=== PATIENT | male | born 1960 | race Two or more races ===

== ENCOUNTER 2016-10-27 13:16 | Inpatient (IN) | payer OTHER ==
[~2016-10-27] VITALS: Ht 167.6 cm; Wt 180.5 kg
--- NOTE | ~2016-10-27 | CON ---
[facility] A[facility] 56 Y [address] ROOM: [place] [address] LOCATION: GPCU ADMIT DATE: 10/27/2016 Consultation DISCHARGE DATE: FAMILY PHYSICIAN: JEWELL LAWRENCE MD ATTENDING PHYSICIAN: MAGGIE ROCKWELL DATE OF CONSULTATION: 10/30/2016 REFERRING PHYSICIAN: Presley Dickerson MD TIME SEEN: 3:20 p.m. HISTORY OF PRESENT ILLNESS: Mr. Waterman is an unfortunate 56-year-old, diabetic male, massively obese, came in the hospital on October 27 for possible sepsis, long history of fractures, and osteomyelitis about his right tibia. No evidence of recurrence. With his diabetes, he does have neuropathic leg pain, right side greater than left. Denies any drainage from the wounds. No new pains about the knee or the ankle. Denies any trauma. ALLERGIES: MORPHINE AND NONSTEROIDAL ANTI-INFLAMMATORIES. MEDICATIONS: See list. PAST MEDICAL HISTORY: Diabetes, osteomyelitis, pathologic fractures of the right tibia, osteoarthritis of the right knee, diabetes, peripheral neuropathy. SOCIAL HISTORY: Does not smoke or drink. FAMILY MEDICAL HISTORY: Unremarkable. REVIEW OF SYSTEMS: As above. PERSONAL AND SOCIAL HISTORY: Lives in [place]. Uses crutches to avoid falls. PHYSICAL EXAMINATION: GENERAL: Obese male, speaks limited South Sudanese. Hears and sees. NECK: Nontender. PATIENT'S NAME: COLUMBA [facility] AGE: 56 Y [address] ROOM: [place] [address] LOCATION: GPCU ADMIT DATE: 10/27/2016 Consultation DISCHARGE DATE: FAMILY PHYSICIAN: JEWELL LAWRENCE MD ATTENDING PHYSICIAN: MAGGIE ROCKWELL BACK: Nontender. HEART: Pulse rate is regular. LUNGS: Able to take in a deep breath. ABDOMEN: Massively obese, nontender. EXTREMITIES: The right leg is examined. The right knee is neutral alignment, not hot or red. No effusion. Tenderness over the medial joint line from arthritis, some crepitus on motion. The right ankle generally tender to light touch throughout the right leg, but not localized to the ankle. No effusion. Not hot or red. The healed wounds over the fracture sites are all healed. There is no erythema, warmth, drainage, or fluctuance. VASCULAR: Distal pulses are palpable. DIAGNOSTIC DATA: X-rays were reviewed consistent with healed right tibial fracture. Nails in place. It has been dynamized and only distal screws present. CT scan of the right tibia shows no destruction of acute osteomyelitis. Shows healed fractures and a maddie and distal locking screws in place. CT scan of the chest: No pulmonary emboli. Ultrasound of the right leg: No DVTs. ASSESSMENT AND PLAN: Healed right tibia fracture. Certainly has a history of osteomyelitis. No acute osteomyelitis at this time. Certainly at risk for recurrence of osteomyelitis in the future. Could be a candidate for removal of intramedullary nail at some time in the future. Will follow up with Dr. Dickerson on November 26 at 4 o'clock p.m. and continue using his crutches to avoid falls. PRESLEY DICKERSON MD DPM/adrienne /[id number] d: 10/30/16 2333 t: 11/07/16 1004, CONSULTATION REPORT
--- NOTE | ~2016-10-27 | DS ---
PATIENT'S NAME: ELOISA WATERMAN [facility] AGE: 56 Y [address] ROOM: [id number] [place], [place] [address] LOCATION: GPCU ADMIT DATE: 10/27/2016 Discharge Summary DISCHARGE DATE: 10/31/2016 FAMILY PHYSICIAN: Gumaro Pizarro MD ATTENDING PHYSICIAN: Abigail Cleveland FINAL DIAGNOSES: 1. Lactic acidosis secondary to metformin. 2. Diabetes mellitus type 2, poorly-controlled. 3. Essential hypertension. 4. Right leg pain. 5. Musculoskeletal back pain. 6. Morbid obesity. Please see the history and physical dictated by Dr. Cleveland for details. In short, the patient was transferred from [place] after presenting with pain in his leg. He was noted to have an elevated lactic acid level and there was concern that he did in fact have an infection in his leg. LABORATORY DATA: On admission, lactate 4.5, most prior to discharge 1.2. Sodium on admission was 138, discharge 139; potassium 4.2, and 4 most prior to discharge; CO2 on admission was 26, most prior to discharge 27; BUN on admission was 18, discharge 19; creatinine on admission was 1.2, discharge 1. Liver enzymes on admission were normal. Total cholesterol 133, triglycerides 185, HDL 34, LDL 62. His hemoglobin A1c was 9.7. C-reactive protein was 1.07. White blood cell count on admission was 12.2 with a normal differential, hemoglobin was 13.7, hematocrit 42.8, and platelet count 278. His sedimentation rate was 20. Procalcitonin on admission was less than 0.05. Cardiovascular data: Venous Dopplers done on admission were negative for DVT. Cardiac stress test, read by Dr. Campos, there is no evidence of inducible reversible defects. Radiology studies: Right leg x-ray on admission done in the emergency room showed evidence of hardware in place. There were no fractures noted. Spiral cut PE protocol CT scan done on admission was negative for pulmonary embolism. He had a stable right adrenal mass. Distal CT scan of his right leg was no evidence of osteomyelitis or soft tissue abscess. HOSPITAL COURSE: The patient was admitted to PCU. He was given one dose of antibiotics. Cultures were obtained. Dr. Presley Campos was asked to see the patient. He was given IV hydration and he was put on heparin for DVT prophylaxis. Dopplers of the legs were done and were negative. He was started on gabapentin for pain. His blood sugars were quite high and his hemoglobin A1c returned elevated. Because of the elevated lactic acid, the metformin was PATIENT'S NAME: ELOISA WATERMAN [facility] AGE: 56 Y [address] ROOM: [place] [address] LOCATION: GPCU ADMIT DATE: 10/27/2016 Discharge Summary DISCHARGE DATE: 10/31/2016 FAMILY PHYSICIAN: Gumaro Pizarro MD ATTENDING PHYSICIAN: Abigail Cleveland on hold. The patient was started on Levemir and aspirin. He developed a substernal chest pain and was given sublingual nitroglycerin. Cardiac enzymes were obtained which were negative. A decision was made to set him up for a stress test which was done on the . It was also felt that he needed to have a CT scan of the leg to rule out osteomyelitis. The Cardiolite stress test returned without any abnormalities. The CT scan returned without any evidence of infection. Diabetic educators did work with him in terms of trying to get him converted. It was felt that we are going to have to start him on insulin, so they did work with carbohydrate counting for him. As his metformin was held, his lactic acid level returned to the normal range. Dr. Presley Campos did see him in consultation for pain in the leg. He did not feel that there was any surgery or any evidence of infection or that any intervention needed to be done at this time and further followup to be done at this time. He did want the patient to follow up with him as an outpatient. We did work to get him samples of meters and strips and insulin from the diabetic center as well as from his primary care office with Dr. Pizarro. It was felt that he had reached maximum hospital benefit and was stable for discharge on the . DISCHARGE MEDICATIONS: 1. Aspirin 325 mg daily. 2. Neurontin 200 mg 3 times a day. 3. NovoLog insulin 2 units per 15 grams of carbohydrates consumed. 4. Lantus 18 units at bedtime. 5. Lopressor 25 mg twice a day which was started for hypertension. FOLLOWUP: The patient is scheduled to follow up with Dr. Pizarro, his primary care provider on November 06 at [address] Presley Campos on November 26 at 4 p.m. PROGNOSIS: Overall prognosis at discharge is . TIKA REDMOND MD LAW/modl /[id number] d: 11/01/16 1303 t: 11/01/16 1830, DISCHARGE SUMMARY
--- NOTE | ~2016-10-27 | ER ---
[facility] AGE: 56 Y [address] ROOM: [place] [id number] LOCATION: GPCU ADMIT DATE: 10/27/2016 ER/Outpatient Report DISCHARGE DATE: FAMILY PHYSICIAN: JEWELL LAWRENCE MD ATTENDING PHYSICIAN: MAGGIE CLEVELAND TIME OF ARRIVAL: 1320 TIME OF EXAM: 1320 CHIEF COMPLAINT: Possible leg infection. HISTORY OF PRESENT ILLNESS: The patient states through the use of the MARTTI that he has been having right lower leg pain for the past month, it hurts all the time. He was last seen by his primary provider in August for this. He was concerned today because his sugars are elevated at home, and the last time he had infection of his right lower leg, his blood sugars went up. He says he is taking his diabetes medicine, but his blood sugar continues to be high. He has had some swelling of his legs. States he has had fever and chills at home, but has not noticed any redness or any open sores. Reports the pain starts around his ankle area and goes all the way up to his knee. He does have some numbness of his toes. He does have a history of peripheral neuropathy. ALLERGIES: HE HAS NO KNOWN ALLERGIES. CURRENT MEDICATIONS: He is on metformin twice a day. PAST MEDICAL HISTORY: Non-insulin dependent diabetes, COPD, elevated cholesterol, iron deficiency anemia, gastric reflux, sleep apnea, obesity, peripheral neuropathy, and osteomyelitis with debridement of the right lower leg. PAST SURGERIES: He had right lower leg fracture with maddie placement in 2003, and he has had the hardware removed of the fibula due to osteomyelitis. He has had right knee surgery. SOCIAL HISTORY: He denies use of tobacco, drugs, or alcohol. PATIENT'S NAME: COLUMBA [facility] AGE: 56 Y [address] ROOM: [address] [address] LOCATION: GPCU ADMIT DATE: 10/27/2016 ER/Outpatient Report DISCHARGE DATE: FAMILY PHYSICIAN: JEWELL LAWRENCE MD ATTENDING PHYSICIAN: MAGGIE CLEVELAND A REVIEW OF SYSTEMS: Negative other than those mentioned in the HPI. PHYSICAL EXAMINATION: VITAL SIGNS: He weighed 183.4 kg. Blood pressure is 173/85, pulse of 92, respirations 18, temperature of 98.1, O2 saturations 96% on room air. GENERAL: He is awake, alert, and oriented x4. SKIN: [place], warm, and dry. RESPIRATIONS: Even and nonlabored. Lung sounds are clear throughout. HEART: Regular rate and rhythm. ABDOMEN: Round and nondistended. Bowel sounds are present. He has positive peripheral pulses. No redness of his right lower leg is noted. Nonpitting edema noted. LABORATORY DATA AND X-RAYS: Lab work was drawn. CBC comes back with a white count of 12.2, hemoglobin 13.7, hematocrit 42.8. Chem panel: Sodium 138, potassium 4.2, chloride 108, glucose 218, BUN 18, creatinine 1.2. GFR greater than 60. Lactate came back at 4.5. Doppler study of right leg completed and was negative. EMERGENCY DEPARTMENT COURSE: The patient was reviewed with Dr. Merino. He does meet criteria for sepsis with the tachycardia and elevated white count. We will start him on vancomycin and Zosyn. Procalcitonin came back normal. Dr. Cleveland was contacted. Report given. IMPRESSION: 1. Sepsis. 2. Possible osteomyelitis. PLAN: The patient will be placed in PCU under the care of the hospitalist. The patient is aware of the plan. CARMELITA JUAREZ APRN FOR DO ANIVAL GUSTAFSON/adrienne /[id number] d: 10/27/162026 t: 11/05/162042, OUTPATIENT REPORT
--- NOTE | ~2016-10-27 | ESTC ---
Cardiac Perfusion Imaging Demographics Patient Name COLUMBA Cevallos Gender Male Patient Number [id number] Race Other Visit Number [id number] Ethnicity or Corporate ID Room Number G6324 Accession Number [id number] Height 66 inches Date of 1960 Weight 404.6 pounds Interpreting Beth Thomas MD Date of study 10/29/2016 Physician Supervising /ANGELA HUTCHISON Technologist Carlos Grande APRN Ordering Physician Mayi Roger V Stress MD automation control technician Stress ECG Reading Kj Rivers Nurse Geovany Pittman Physician PREET Medications Reviewed with Patient prior to Procedure. Procedure Procedure Type: Nuclear Stress Test:Pharmacological, Lexiscan, Cardiolite Stress Test Procedure Start time: 10/29/2016 08:30 Indications: Septic shock. Risk Factors The patient risk factors include:obesity, physical activity, hypercholesterolemia, hypertension, insulin treated diabetes mellitus, chronic lung disease and dyslipidemia. Conclusions Summary Cardiolite SPECT images demonstrate homogenous uptake of radioactive tracer. No evidence of inducible reversible defect and no evidence of underlying fixed defect. Normal TID ratio Gated images demonstrate normal left ventricular systolic function without inducible wall motion abnormalities. LVEF is 78% Stress Protocols Resting ECG RSR without ST or T wave changes. Resting HR:38 bpm Resting BP:138/85 mmHg Pre-stress physical exam: Pharmacologic stress testing was performed due to inability to walk. Stress Protocol:Pharmacologic Peak HR:111 bpm HR response: Appropriate Peak BP:149/80 mmHg BP response: Appropriate Predicted HR: 163 bpm HR/BP product:10641 % of predicted HR: 68 Reason for termination:Infusion complete ECG Findings No ECG changes suggestive of ischemia. Arrhythmias No rhythm abnormality. Symptoms Nausea Stress Interpretation Appropriate hemodynamic response to Lexiscan. No significant ST-T wave changes with Lexiscan. ECG portion is negative for ischemia by diagnostic criteria. Stress supervision and interpretation provided by Milli Underwood APRN . Imaging Results Applied corrections - Motion correction applied Summed scores - Summed stress score: 16 - Summed rest score: 21 - Summed difference score: -5 Stress ejection Ejection fraction:78 % EDV :115 ml ESV :25 ml Stroke volume :90 ml LV mass :138 gr Imaging Protocols Rest Stress Isotope:Tc99m Sestamibi IV Isotope: Tc99m Sestamibi IV Isotope dose:16 mCi Isotope dose:51 mCi Date:10/29/2016 07:03 Date:10/29/2016 08:50 Technique: SPECT Technique: Gated Supine SPECT Supine IV remains in place after procedure. Procedure Medications - Regadenoson (Lexiscan) 0.4 mg IV over 10-15 sec. I.V. 0.4 mg. Medications administered per verbal order and read back to physician prior to administration. Medical History Admission Data Admission date: 10/27/2016 Admission Time: 17:43 Hospital Status: Inpatient. Signatures dtt: William Campos (cardio) dtd: 10/29/16 3127 Physician Self Edit
--- NOTE | ~2016-10-27 | ENPV ---
Vascular Lower Extremities DVT Study Procedure Demographics Patient Name ELIOSA WATERMAN Date of Study 10/27/2016 Patient Number [id number] Gender Male Date of 1960 Age 56 Visit Number [id number] Height Accession Number [id number] Weight Room Number G6324 BSA BMI Referring Juarez Naik MD Interpreting Efrem Jamison MD Physician Jewel Physician Physician Ordering Physician Jewel Real Estate Developer Sewer Connector Isidro Boateng, MIRIAMT Conclusions Summary Technically difficult and limited exam secondary to the patient's pain. No evidence of deep vein thrombosis in the right lower extremity veins visualized. The femoral vein was not compressed and is patent by color filling. The right proximal segment of the posterior tibial veins and the peroneal veins were not visualized, cannot rule out deep vein thrombosis in these veins. Procedure Type of Study: Veins:Lower Extremities DVT Study, Lower Extremity Right. Indications for Study:Unilateral pain and edema. Additional Indications:Right lower extremity pain/edema Appropriate Use Criteria:9 Patient Status:STAT. Study Location:ER. Technical Quality:Limited visualization due to sub-optimal image. Velocities are measured in cm/s ; Diameters are measured in cm Right Lower Extremities DVT Study Measurements Right 2D and Doppler Measurements + + + + +------+------+ + !Location !Visualized!Compressibility!Thrombosis!Signal!Reflux!Reflux ! ! ! ! ! ! ! !(sec) ! + + + + +------+------+ + !GSV Thigh !Yes !Yes !None !Phasic!No ! ! + + + + +------+------+ + !Common !Yes !Yes !None !Phasic!No ! ! !Femoral ! ! ! ! ! ! ! + + + + +------+------+ + !Prox !Yes !No !None !Phasic!No ! ! !Femoral ! ! ! ! ! ! ! + + + + +------+------+ + !Mid Femoral!Yes !Yes !None !Phasic!No ! ! + + + + +------+------+ + !Dist !Yes !No !None !Phasic!No ! ! !Femoral ! ! ! ! ! ! ! + + + + +------+------+ + !Popliteal !Yes !Yes !None !Phasic!No ! ! + + + + +------+------+ + !Gastroc !Yes !Yes !None !Phasic!No ! ! + + + + +------+------+ + !PTV !Yes !Yes !None !Phasic!No ! ! + + + + +------+------+ + !Peroneal !No ! ! ! ! ! ! + + + + +------+------+ + Left Lower Extremities DVT Study Measurements Left 2D and Doppler Measurements + + + + +------+------+ + !Location !Visualized!Compressibility!Thrombosis!Signal!Reflux!Reflux ! ! ! ! ! ! ! !(sec) ! + + + + +------+------+ + !Common !Yes !Yes !None !Phasic!No ! ! !Femoral ! ! ! ! ! ! ! + + + + +------+------+ + Signature dtt: LANE CHANEL dtkarla: 10/27/16 1412 Physician Self Edit
--- NOTE | ~2016-10-27 | HP ---
[facility] AGE: 56 Y [address] ROOM: [place] [address] LOCATION: GPCU ADMIT DATE: 10/27/2016 History & Physical DISCHARGE DATE: FAMILY PHYSICIAN: JEWELL LAWRENCE MD ATTENDING PHYSICIAN: MAGGIE ROCKWELL DATE OF SERVICE: CHIEF COMPLAINT: Bilateral leg pain right greater than left. HISTORY OF PRESENT ILLNESS: A 56-year-old Macedonian speaking gentleman with a past medical history of morbid obesity, recurrent right tibial osteomyelitis, insulin-dependent diabetes mellitus, presented to the emergency department from [place], stating that he had been feeling pain in his both legs, right greater than left, which have been going on for couple of weeks now associated with some fever and chills, which he stated have been going on for over a month now. On further inquiry, he denied any swelling in the legs or any redness. He denied any shortness of breath along with any chest pain, any headache, any dizziness, any trouble swallowing, any abdominal pain, any burning on urination, any constipation or diarrhea. REVIEW OF SYSTEMS: All other systems reviewed and were negative except what is mentioned in the HPI. ALLERGIES: THE PATIENT IS ALLERGIC TO MORPHINE AND IBUPROFEN. PAST MEDICAL HISTORY: 1. Morbid obesity. 2. Obstructive sleep apnea. 3. Obesity hypoventilation syndrome. 4. Insulin-dependent diabetes mellitus. 5. Peripheral neuropathy. 6. Right adrenal mass without any biopsy due to morbid obesity. 7. Dyslipidemia. 8. GERD. 9. Iron deficiency anemia. 10. Chronic pain from multiple surgeries, on chronic narcotic use. 11. Essential hypertension. 12. Right eye tear. 13. History of broken teeth. 14. History of COPD. PATIENT'S NAME: WATERMAN [facility] AGE: 56 Y [address] ROOM: [place] [id number] LOCATION: GPCU ADMIT DATE: 10/27/2016 History & Physical DISCHARGE DATE: FAMILY PHYSICIAN: JEWELL LAWRENCE MD ATTENDING PHYSICIAN: MAGGIE ROCKWELL PAST SURGICAL HISTORY: 1. Right fibular osteotomy and hardware removal of the right tibial shaft. 2. Right knee surgery. 3. Growth removal on the left eye. 4. Debridement of the osteomyelitis of the right tibia. 5. Closed reduction of the right tibial fracture. 6. Biopsy of the right tibia with cast application intermittently. 7. Nail fixation with old right tibial fracture. 8. Right leg hardware removal. FAMILY HISTORY: The patient have 5 brothers and 5 sisters. No history of coronary artery disease. MEDICATIONS: Medications are being reviewed. SOCIAL HISTORY: Never a smoker. No alcohol or drug abuse. Lives with sister in [place]. PHYSICAL EXAMINATION: VITAL SIGNS: Blood pressure 173/68, heart rate of 92, afebrile, respiratory rate of 20. GENERAL: In no acute distress. Alert and oriented x3. HEENT: Head: Atraumatic, normocephalic. Eyes: Nonicteric. No pallor. Oropharynx; moist mucous membranes. CARDIOVASCULAR: S1, S2. No murmurs, gallops, or rubs. LUNGS: Clear to auscultation bilaterally. ABDOMEN. Very obese, nontender, nondistended. Bowel sounds are present. EXTREMITIES: Did not reveal any edema, but tenderness could be elicited on tibial palpation on the right side. PSYCH: Normal affect, mood, and speech. NEUROLOGIC: Cranial nerves 2 through 12 intact. No motor or sensory deficit noted. LABORATORY DATA: Lab work done in emergency department showed lactic acid level of 12.5. CBC was remarkable for white count of 12.2. BMP was remarkable only for glucose of 218. Procalcitonin was less than 0.05. X-ray of the right leg have been ordered. Per verbal report from the ER provider, right leg Doppler's were done, which were negative for any blood clots. ASSESSMENT: 1. Sepsis, unknown etiology. PATIENT'S NAME: ELOISA WATERMAN [facility] AGE: 56 Y [address] ROOM: [place] [address] LOCATION: GPCU ADMIT DATE: 10/27/2016 History & Physical DISCHARGE DATE: FAMILY PHYSICIAN: JEWELL LAWRENCE MD ATTENDING PHYSICIAN: MAGGIE ROCKWELL 2. Hyperglycemia. 3. Insulin-dependent diabetes mellitus. 4. Morbid obesity. 5. Obesity hypoventilation syndrome. 6. Chronic hypoxic respiratory failure. 7. Right adrenal mass with no biopsy done due to morbid obesity, essential hypertension, recurrent episode of right tibial osteomyelitis, peripheral neuropathy. PLAN: Time of diagnosis of sepsis was 2 p.m. Two sets of blood cultures have been drawn. 2 L of IV fluids are continued right now. Broad-spectrum antibiotics including vancomycin and Zosyn have been administered by the emergency department. A repeat lactic acid level will be done. After these doses of antibiotics, I will not give any antibiotic doses even if he have osteomyelitis, we will need bone biopsies and cultures as he will require 6-8 weeks of antibiotics and antibiotics are going to reduce sensitivity of our test. Hyperglycemia, we are going to start sliding scale insulin and monitor blood checks. We are going to continue CPAP and home oxygen at nighttime. Depending on the x-ray of the right leg, we will consult Orthopedics if necessary. We will continue home medication for hypertension as well. Fall precautions will be used. DVT prophylaxis will be provided with heparin and SCDs. For COPD, we will continue DuoNeb's at this point. MD DENA RUIZ/adrienne /[id number] D: [id number] T: [id number] HISTORY & PHYSICAL
[~2016-10-27 13:16] MED LIST: ADVIL200 MG PO; ASPIR 8181 MG PO; ASPIRIN LO-DOSE81 MG PO; COLACE100 MG PO; DELTASONE10 MG PO; DELTASONE20 M1 PO; DELTASONE50 MG PO; EQUATE NOSE; FEOSOL325 MG PO; FLONASE 50 MCG/16 GM NOSE; GABAPENTIN300 MG PO; HUMIBID LA (MU600 MG; HUMIBID LA (MU600 MG PO; JANUMET 50-1,01 EACH PO; JANUMET 50-5001 EACH PO; JANUVIA 100 MG100 MG PO; LANTUS (IN100 UNIT/M SUB-Q; LANTUS100 UNIT/1 SUB-Q; LEVAQUIN 750 M750 MG PO; LEVEMIR100 UNIT/1 SUB-Q; LISINOPRIL20 MG PO; LOVASTATIN10 MG PO; MEVACOR20 MG PO; MILK OF MA400 MG/5 M PO; MIRALAX17 GM PO; MUCINEX1200 MG PO; NORCO 10-325 T1 EACH PO; NORCO 5-325 MG1 TAB PO; NOVOLOG100 UNIT/1; NOVOLOG100 UNIT/1 SUB-Q; NOVOLOG100 UNIT/M SUB-Q; OXYGEN M-15 INH; PERCOCET 5-3251 EACH PO; PROAIR HFA8.5 GM INH; PROTONIX40 MG PO; PROVENTIL OR V6.7 GM; TEARGEN1 BOT OPHTH; TOUJEO SOL300 UNIT/1 SUB-Q; TRULICITY0.75 MG/0. SUB-Q; TYLENOL EXTRA500 MG PO; VALIUM5 MG PO; ZESTRIL40 MG PO
[2016-10-27 14:10] LABS: BASOPHIL # 0.1 K/uL (0.0-0.2); BASOPHIL % 0.8 %; EOSINOPHIL # 0.3 K/uL (0.0-0.5); HEMATOCRIT 42.8 % (37.0-53.0); HEMOGLOBIN 13.7 g/dL (12.0-17.0); IMMATURE GRANULOCYTE # 0.1 K/uL (0.0-0.3); IMMATURE GRANULOCYTE % 0.7 %; LYMPHOCYTE # 2.9 K/uL (0.8-4.0); LYMPHOCYTE % 23.7 %; MCH 27.2 pg (27.0-34.0); MCV 84.9 fl (83.0-98.0); MONOCYTE % 8.2 %; NEUTROPHIL # (ANC) 7.9 K/uL (1.4-9.0); NEUTROPHIL % 64.6 %; NRBC % 0 /100WBC (0-0.00); PLATELET COUNT 278 K/uL (150-450); RBC 5.04 M/uL (4.00-6.00); RDW-CV 13.7 % (11.9-14.6); WBC 12.2 K/uL (4.0-11.0)
[2016-10-27 14:51] LABS: ALBUMIN 3.1 gm/dL (3.5-5.0); ALK PHOS 68 IU/L (33-138); ALT 33 IU/L (12-78); ANION GAP 17.2 (10.0-19.0); AST 21 IU/L (10-40); BLOOD UREA NITROGEN 18 mg/dL (6-24); CALCIUM 8.5 mg/dL (8.5-10.5); CHLORIDE 103 mMol/L (96-110); CO2 22 mMol/L (22-32); CREATININE 1.2 mg/dL (0.6-1.3); ESTIMATED GFR (MDRD EQUATION) > 60; POTASSIUM 4.2 mMol/L (3.7-5.1); SODIUM 138 mMol/L (135-145); TOTAL BILIRUBIN 0.3 mg/dL (0.0-1.5); TOTAL PROTEIN 7.7 g/dL (6.0-8.4)
[2016-10-27] MEDS ORDERED: GLUCOPHAGE1000 MG PO (19:30)
[2016-10-28 05:19] LABS: BASOPHIL # 0.1 K/uL (0.0-0.2); EOSINOPHIL # 0.3 K/uL (0.0-0.5); EOSINOPHIL % 3.2 %; HEMATOCRIT 38.8 % (37.0-53.0); IMMATURE GRANULOCYTE # 0.1 K/uL (0.0-0.3); IMMATURE GRANULOCYTE % 0.7 %; LYMPHOCYTE # 1.8 K/uL (0.8-4.0); LYMPHOCYTE % 22.1 %; MCH 26.4 pg (27.0-34.0); MCHC 30.9 gm/dL (32.0-36.5); MCV 85.3 fl (83.0-98.0); MONOCYTE # 0.9 K/uL (0.0-1.0); MPV 10.8 fl (9.4-12.4); NEUTROPHIL # (ANC) 5.1 K/uL (1.4-9.0); NRBC % 0 /100WBC (0-0.00); PLATELET COUNT 243 K/uL (150-450); RBC 4.55 M/uL (4.00-6.00); RDW-CV 13.7 % (11.9-14.6); WBC 8.2 K/uL (4.0-11.0)
[2016-10-28 05:30] LABS: BLOOD UREA NITROGEN 16 mg/dL (6-24); CHLORIDE 106 mMol/L (96-110); CO2 29 mMol/L (22-32); ESTIMATED GFR (MDRD EQUATION) > 60; SODIUM 141 mMol/L (135-145)
[2016-10-28 15:18] LABS: CPK 197 IU/L (35-332)
[2016-10-28 21:14] LABS: CPK 170 IU/L (35-332)
[2016-10-29 05:32] LABS: CPK 140 IU/L (35-332)
[2016-10-30 05:03] LABS: HEMATOCRIT 39.5 % (37.0-53.0); HEMOGLOBIN 12.6 g/dL (12.0-17.0); MCH 27.3 pg (27.0-34.0); MCHC 31.9 gm/dL (32.0-36.5); MCV 85.7 fl (83.0-98.0); MPV 10.4 fl (9.4-12.4); PLATELET COUNT 244 K/uL (150-450); RBC 4.61 M/uL (4.00-6.00); RDW-CV 13.7 % (11.9-14.6); WBC 9.2 K/uL (4.0-11.0)
[2016-10-30 05:27] LABS: ALBUMIN 2.7 gm/dL (3.5-5.0); BLOOD UREA NITROGEN 19 mg/dL (6-24); CALCIUM 8.3 mg/dL (8.5-10.5); CHLORIDE 104 mMol/L (96-110); CO2 27 mMol/L (22-32); ESTIMATED GFR (MDRD EQUATION) > 60; PHOSPHORUS 4.4 mg/dL (2.5-4.9); SODIUM 139 mMol/L (135-145)
[2016-10-30 05:54] LABS: ABSOLUTE NEUTROPHIL CT (ANC) 6.1 K/uL (1.4-9.0); LYMPHOCYTE # 2.2 K/uL (0.8-4.0); LYMPHOCYTE % 24 %; MONOCYTE # 0.6 K/uL (0.0-1.0); SEGMENTED NEUTROPHIL # 6.1 K/uL (1.4-9.0); SEGMENTED NEUTROPHIL % 66 %
[2016-10-31] MEDS ORDERED: ECOTRIN325 MG PO (13:13)
[2016-10-31] MEDS ORDERED: NEURONTIN100 MG PO (13:14)
[2016-10-31] MEDS ORDERED: NOVOLOG100 UNIT/M SUB-Q (13:15)
[2016-10-31] MEDS ORDERED: LANTUS (IN100 UNIT/M SUB-Q (13:16)
[2016-10-31] MEDS ORDERED: LOPRESSOR25 MG PO (13:16)
== END 2016-10-31 17:10 | disposition disaster alternative care site (69) | DRG 638 ==
LOC: GMED 13:16 → GPCU 17:43
PROVIDERS: Internal Medicine; Nurse Practitioner Family; ADMIT Internal Medicine
DX: E11.65 Type 2 diabetes mellitus with hyperglycemia (principal); J96.10 Chronic respiratory failure, unspecified whether with hypoxia or hypercapnia; E87.2 Acidosis; E66.2 Morbid (severe) obesity with alveolar hypoventilation; Z68.44 Body mass index [BMI] 60.0-69.9, adult; E11.40 Type 2 diabetes mellitus with diabetic neuropathy, unspecified; T38.3X5A Adverse effect of insulin and oral hypoglycemic [antidiabetic] drugs, initial encounter; Z79.84 Long term (current) use of oral hypoglycemic drugs; J44.9 Chronic obstructive pulmonary disease, unspecified; K21.9 Gastro-esophageal reflux disease without esophagitis; G47.33 Obstructive sleep apnea (adult) (pediatric); G89.29 Other chronic pain; E27.9 Disorder of adrenal gland, unspecified; I10 Essential (primary) hypertension; R07.9 Chest pain, unspecified; M79.604 Pain in right leg
CPT/HCPCS: A9500; J1644; J2001; J2543; J2785; J3370; J7030; J7040; J7120; Q9967